=== PATIENT | male | born 1955 | race Caucasian/White ===

== ENCOUNTER 2021-04-30 09:20 | Outpatient (CLI) | payer OTHER, SELFPAY ==
--- NOTE | ~2021-04-30 | US_ITS ---
EXAMINATION: US venous doppler LE BI DATE: 04/30/2021 10:24 INDICATION: Symptomatic varicose veins of both legs. Venous reflux. TECHNIQUE: Multiple grayscale, color flow and Doppler images of the lower extremity venous systems bi laterally were obtained and reviewed. Saphenous venous mapping. The exam was reviewed on 04/30/2021. There is no prior study for comparison. FINDINGS: Right side: The right common femoral, femoral and profunda veins demonstrate normal color flow, respi ratory variation, augmentation and compressibility. Compressibility, color flow confirmed within the right popliteal, posterior tibial, peroneal, and greater saphenous veins. Right Standing Venous Mapping: reflux seconds duration; vein size. Greater saphenous origin: 0.5 seconds; 5.5 mm. Greater saphenous mid thigh:------ 1.5 seconds; 7.3 mm. Greater saphenous below knee:--- 6 seconds; 5.4 mm. Lesser saphenous proximally:------ 0 seconds; 3.5 mm. Lesser saphenous distally: Difficult to visualize Left side: The left common femoral, femoral and profunda veins demonstrate normal color flow, respira tory variation, augmentation and compressibility. Compressibility, color flow confirmed within the l eft popliteal, posterior tibial, peroneal, and greater saphenous veins. Left Standing Venous Mapping: reflux seconds duration; vein size. Greater saphenous origin: 0 seconds; 5.3 mm. Greater saphenous mid thigh:------ 1 seconds; 2.4 mm. Greater saphenous below knee:--- 0 seconds; 3.9 mm. Lesser saphenous proximally:------ 0 seconds; 4.0 mm. Lesser saphenous distally: 0 seconds; 2.4 mm. IMPRESSION: 1. No lower extremity deep venous thrombosis bilaterally. 2. Bilateral greater saphenous venous reflux, more on the right. Reviewed, dictated and finalized at location A.
== END 2021-04-30 09:21 | disposition home or self-care (01) ==
LOC: ANHIMG 09:23
PROVIDERS: PCP Internal Medicine Gastroenterology
DX: I83.93 Asymptomatic varicose veins of bilateral lower extremities (principal)
CPT/HCPCS: 93970